=== PATIENT | male | born 1980 | race Caucasian/White ===

== ENCOUNTER 2016-12-12 08:17 | Emergency (ER) | payer BC ==
[2016-12-12 08:23] VITALS: BP 141/96
--- NOTE | 2016-12-12 08:51 | ED ---
Gustavo Greene Angela, scribed for Hu Muñiz MD on 12/12/16 at 0829 . Throat Pain/Nasal Congestion - HPI Summary HPI Summary: This pt is a 36 y/o male presenting to [facility] c/o redness in left eye since this morning. Pt reports that upon waking up today his eye was closed shut and he had to open it. He states he had a lot of discharge overnight. Pt denies decreased vision of left eye. He notes that his eye began to hurt yesterday but it was not red until today. Pt denies any trauma to his eye or any foreign bodies. He denies sick contacts, sore throat, cough, rhinorrhea. NKDA. He denies any PMHx or PSHx. - History of Current Complaint Chief Complaint: EDEyeProblem Time Seen by Provider: 12/12/16 08:24 Hx Obtained From: Patient Onset/Duration: Lasting Hours, Still Present Associated Signs And Symptoms: Negative: FB Sensation Cough: None Related History: Other (Noted In Comments) - no trauma or foreign body - Allergies/Home Medications Allergies/Adverse Reactions: Allergies Allergy/AdvReac Type Severity Reaction Status Date / Time No Known Allergies Allergy Verified 12/12/16 08:30 PMH/Surg Hx/FS Hx/Imm Hx Previously Healthy: Yes Endocrine/Hematology History: Denies: Hx Diabetes Cardiovascular History: Denies: Hx Hypertension Infectious Disease History: No Infectious Disease History: Denies: Traveled Outside the [place] in Last 30 Days - Family History Known Family History: Negative: Cardiac Disease, Hypertension, Diabetes - Social History Alcohol Use: Rare Hx Substance Use: Yes Substance Use Type: Reports: Marijuana Hx Tobacco Use: No Smoking Status (MU): Never Smoked Tobacco Review of Systems Negative: Fever, Chills Eyes: Other - left eye discharge Positive: Erythema - in left eye. Negative: Blurred Vision, Other - decreased vision ENT: Negative Negative: Sore Throat, Nasal Discharge Negative: Cough Gastrointestinal: Negative Genitourinary: Negative All Other Systems Reviewed And Are Negative: Yes Physical Exam - Summary Physical Exam Summary: VITAL SIGNS: Reviewed. GENERAL: Patient is a well-developed and nourished male who is lying comfortable in the stretcher. Patient is not in any acute respiratory distress. HEAD AND FACE: No signs of trauma. No ecchymosis, hematomas or skull depressions. No sinus tenderness. EYES: PERRLA, EOMI x 2. Bilateral conjunctival injection. Left eye has yellow discharge. Visual acuity is within normal limits. EARS: Hearing grossly intact. Ear canals and tympanic membranes are within normal limits. MOUTH: Oropharynx within normal limits. NECK: Supple, trachea is midline, no adenopathy, no JVD, no carotid bruit, no c- spine tenderness, neck with full ROM. CHEST: Symmetric, no tenderness at palpation LUNGS: Clear to auscultation bilaterally. No wheezing or crackles. CVS: Regular rate and rhythm, S1 and S2 present, no murmurs or gallops appreciated. ABDOMEN: Soft, non-tender. No signs of distention. No rebound no guarding, and no masses palpated. Bowel sounds are normal. EXTREMITIES: FROM in all major joints, no edema, no cyanosis or clubbing. NEURO: Alert and oriented x 3. No acute neurological deficits. Speech is normal and follows commands. SKIN: Dry and warm Triage Information Reviewed: Yes Vital Signs On Initial Exam: Initial Vitals Temp Pulse Resp BP Pulse Ox 97.4 F 84 20 141/96 99 12/12/16 08:20 12/12/16 08:20 12/12/16 08:20 12/12/16 08:20 12/12/16 08:20 Vital Signs Reviewed: Yes Diagnostics - Vital Signs Vital Signs Temp Pulse Resp BP Pulse Ox 12/12/16 08:20 97.4 F 84 20 141/96 99 - Laboratory Lab Statement: Any lab studies that have been ordered have been reviewed, and results considered in the medical decision making process. EENT Course/Dx - Course Assessment/Plan: Patient with bilateral conjunctivitis left worse than right. Patient given a prescription for polymyxin B/Trimethoprim ophthalmic. I discussed all the findings and test results with the patient. Patient was instructed to return to the emergency room immediately if any of the symptoms return or worsens. Plan of care was discussed with the patient and understands and agrees. All questions were answered at patient satisfaction. There were no further complaints or concerns. - Differential Diagnoses Differential Diagnoses: Allergic Rhinitis, Conjunctivitis, Contusion, Corneal Abrasion - Diagnoses Provider Diagnoses: Conjunctivitis Discharge - Discharge Plan Condition: Stable Disposition: HOME Prescriptions: Polymyx/Trimethoprim OPTH* [Polytrim OPHTH*] 1 drop BOTH EYES Q3H #1 btl Patient Education Materials: Conjunctivitis (ED) Forms: *Work Release Referrals: No Primary Care Phys,NOPCP [Primary Care Provider] - [facility]IAN REFERRAL [Outside] Additional Instructions: Please follow up with your primary care provider. The documentation as recorded by the Gustavo herrera Angela accurately reflects the service I personally performed and the decisions made by me, Hu Muñiz MD.
== END 2016-12-12 08:45 | disposition home or self-care (01) ==
LOC: ED 08:17
DX: H10.9 Unspecified conjunctivitis (principal)
CPT/HCPCS: 99281